=== PATIENT | female | born 1950 | race Caucasian/White ===

== ENCOUNTER 2018-08-24 09:38 | Outpatient (CLI) | payer MEDICARE ==
--- NOTE | 2018-09-03 13:11 | MMO ---
BILATERAL SCREENING MAMMOGRAM: Date: 08/24/18 COMPARISON: 06/16/17, 06/14/16, and 06/12/15. HISTORY: Screening mammography. FINDINGS: This patient's mammogram was interpreted with the assistance of computer-aided detection. Scattered fibroglandular densities are present. There is a new asymmetric density located within the central right breast in a retroareolar location measuring up to approximately 1.5 cm. IMPRESSION: BIRADS 0: Incomplete: Need Additional Imaging Evaluation and/or Prior Mammograms for Comparison Recommend diagnostic mammogram and focused breast ultrasound on the right. The facility will notify patient of need for additional imaging services. POS: [facility]
== END 2018-08-24 09:39 | disposition home or self-care (01) ==
LOC: SCSMAMMO 09:38
PROVIDERS: ATTEND Family Medicine
DX: Z12.31 Encounter for screening mammogram for malignant neoplasm of breast (principal)
CPT/HCPCS: 77067

== ENCOUNTER 2018-09-14 14:10 | Outpatient (CLI) | payer MEDICARE | END 2018-09-14 14:11 | disposition home or self-care (01) | LOC: BICMAMMO 14:10 | PROVIDERS: ATTEND Family Medicine | DX: R92.2 Inconclusive mammogram (principal); Z80.3 Family history of malignant neoplasm of breast | CPT/HCPCS: 77065; G0279 ==

== ENCOUNTER 2018-10-19 09:17 | Outpatient (CLI) | payer MEDICARE ==
--- NOTE | 2018-10-19 11:27 | BD ---
BONE DENSITOMETRY USING DEXA: HISTORY: Postmenopausal screening for osteoporosis. FINDINGS: Lumbar Spine: BMD (g/cm2) L1 0.702 T-Score: -2.6 Z-Score: 0.9 L2 0.762 T-Score: -2.4 Z-Score: 0.5 L3 0.836 T-Score: -2.3 Z-Score: 0.2 L4 0.829 T-Score: -2.1 Z-Score: 0.0 L1-L4 0.787 T-Score: -2.4 Z-Score: 0.4 Femoral Neck: 0.692 T-Score: -1.4 Z-Score: 0.3 Total Femur: 0.922 T-Score: -0.2 Z-Score: 1.2 The 10-year fracture risk for a major osteoporotic fracture is 8.6% and for a hip fracture is 0.9%. Impression: Osteopenia. POS: [facility]
== END 2018-10-19 09:18 | disposition home or self-care (01) ==
LOC: BICMAMMO 09:17
PROVIDERS: ATTEND Family Medicine
DX: M85.859 Other specified disorders of bone density and structure, unspecified thigh (principal); M81.0 Age-related osteoporosis without current pathological fracture
CPT/HCPCS: 77080

== ENCOUNTER 2019-09-16 09:52 | Outpatient (CLI) | payer MEDICARE ==
--- NOTE | 2019-09-16 11:39 | MMO ---
Bilateral MAMMO Bilat Screen [facility]. CLINICAL HISTORY: Patient is 68 years old and is seen for screening. The patient has no personal history of cancer. VIEWS: The views performed were: bilateral craniocaudal with tomosynthesis and bilateral mediolateral oblique with tomosynthesis. FILMS COMPARED: The present examination has been compared to prior imaging studies performed on 06/14/2016, 06/16/2017 and 08/24/2018, and at [facility] on 09/14/2018. This study has been interpreted with the assistance of computer-aided detection. MAMMOGRAM FINDINGS: There are scattered fibroglandular densities. There are stable benign appearing calcifications seen in both breasts. There are no suspicious masses, suspicious calcifications, or new areas of architectural distortion. IMPRESSION: THERE IS NO MAMMOGRAPHIC EVIDENCE OF MALIGNANCY. A ROUTINE FOLLOW-UP MAMMOGRAM IN 1 YEAR IS RECOMMENDED. THE RESULTS OF THIS EXAM WERE SENT TO THE PATIENT. ACR BI-RADS Category 2 - Benign finding MAMMOGRAPHY NOTE: 1. A negative mammogram report should not delay a biopsy if a dominant of clinically suspicious mass is present. 2. Approximately 10% to 15% of breast cancers are not detected by mammography. 3. Adenosis and dense breasts may obscure an underlying neoplasm. Reported by: MAXIMILIAN MORALES MD Electonically Signed: [id number]
== END 2019-09-16 09:53 | disposition home or self-care (01) ==
LOC: BICMAMMO 09:52
PROVIDERS: ATTEND Family Medicine
DX: Z12.31 Encounter for screening mammogram for malignant neoplasm of breast (principal)
CPT/HCPCS: 77063; 77067

== ENCOUNTER 2019-11-27 07:44 | Outpatient (CLI) | payer MEDICARE ==
[2019-11-27 12:36] LABS: #Eosinphils 0.1 thou/uL (0.0-0.7); #Monocytes 0.5 thou/uL (0.11-0.59); #Neutrophils 2.7 thou/uL (1.40-6.50); %Basophils 0.3 % (0.0-1.0); %Eosinophils 2.6 % (0.0-10.0); %Lymphocytes 37.8 % (21.0-51.0); %Monocytes 8.7 % (0.0-10.0); %Neutrophils 50.5 % (42.0-75.0); Hemoglobin 13.9 g/dL (12.0-16.0); Mean Corpuscular HGB CONC 32.5 g/dL (32.0-36.0); Mean Corpuscular Hemoglobin 30.5 pg (27.0-31.0); Mean Corpuscular Volume 93.9 fL (78.0-98.0); Mean Platelet Volume 7.3 fL (7.4-10.4); Platelet Count 261 thou/uL (130-400); Red Blood Cell (RBC) Count 4.57 mill/uL (4.20-5.40); White Blood Cell (WBC) Count 5.3 thou/uL (4.8-10.8)
[2019-11-27 12:52] LABS: Anion Gap 11 mmol/L (10-20); BUN (Urea Nitrogen) 11 mg/dL (9.8-20.1); Calc. Creatinine Clearance 0 mL/min (70-130); Calcium 9.5 mg/dL (7.8-10.44); Carbon Dioxide 30 mmol/L (23-31); Chloride 107 mmol/L (98-107); Estimated GFR-MDRD 70; Glucose 100 mg/dL (80-115); Potassium 4.1 mmol/L (3.5-5.1); Sodium 144 mmol/L (136-145)
--- NOTE | 2019-11-28 08:32 | EKG ---
Test Reason : Blood Pressure : / mmHG Vent. Rate : 087 BPM Atrial Rate : 087 BPM P-R Int : 142 ms QRS Dur : 072 ms QT Int : 400 ms P-R-T Axes : 054 026 020 degrees QTc Int : 481 ms Poor data quality, interpretation may be adversely affected Normal sinus rhythm Low voltage QRS Cannot rule out Anterior infarct , age undetermined Abnormal ECG No previous ECGs available Confirmed by DR. Lou RUANO ([id number]) on 11/28/2019 8:32:23 AM Referred By: JANAK Confirmed By:DR. Lou RUANO
== END 2019-11-27 07:45 | disposition home or self-care (01) ==
LOC: LABBT 07:44
PROVIDERS: ATTEND Surgery
DX: Z01.818 Encounter for other preprocedural examination (principal); D17.79 Benign lipomatous neoplasm of other sites
CPT/HCPCS: 80048; 85025; 93005; 93010

== ENCOUNTER 2019-11-29 05:55 | Day surgery (SDC) | payer MEDICARE ==
[2019-11-27 11:48] VITALS: BMI 28.8
[2019-11-29] MEDS ORDERED: Fentanyl 100 MCG/2 ML VIAL ONE (06:36)
[2019-11-29] MEDS ORDERED: Lidocaine 1% w/Epinephrine 1:100K 20 ML VIAL ONE (07:06)
[2019-11-29] MEDS ORDERED: Bupivacaine PF 0.5% 30 ML VIAL ONE (07:06)
[2019-11-29] MEDS ORDERED: Ondansetron PF 4 MG/2 ML Vial ONE (09:21)
[2019-11-29] MEDS ORDERED: PROPOFOL 200 MG/20 ML VIAL ONE (09:21)
[2019-11-29] MEDS ORDERED: Dexamethasone 20 MG/5 ML VIAL ONE (09:21)
[2019-11-29] MEDS ORDERED: Lidocaine 1% PF 5 ML VIAL ONE (09:21)
--- NOTE | 2019-11-29 12:15 | OP ---
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 PROCEDURE PERFORMED: Excisional biopsy. INDICATIONS: A 69-year-old female, who had, had a large lipoma excised 10 years ago from that leg with a recurrent bulge. FINDINGS: A 15 x 15 x 8 cm multilobular intramuscular recurrent lipoma of the left upper inner thigh. DESCRIPTION OF PROCEDURE: After informed consent was obtained, the patient was taken to the operating room, given general endotracheal anesthesia. She was placed in lithotomy position. Her skin was prepped and draped in usual fashion. Local anesthesia infiltrated subcutaneously and deep. An elliptical incision was performed, subcu divided sharply. The capsule was incised and using digital dissection, I was able to free it up circumferentially, but there were several accessory lobules that went into their own pockets. These were also dissected out. Then another large probably 6 x 6 x 5 cm lipoma was found more posterior to this that was also removed by opening up the muscle fibers and excising sharply. Hemostasis was achieved with electrocautery. A drain was placed and brought out anteriorly. The fascia was closed with interrupted 2-0 Vicryl sutures. Skin closed with a running subcuticular 4-0 Rapide. Steri-Strips applied. Sterile bandage applied. The patient tolerated the procedure well, transferred to Recovery in good condition. Sponge and needle count verified correct x2. Job ID: [id number]
== END 2019-11-29 11:02 | disposition home or self-care (01) ==
LOC: SDC 05:55
PROVIDERS: ATTEND Surgery
PROC: 0KBR0ZZ Excision of Left Upper Leg Muscle, Open Approach (ICD-10-PCS; principal; 2019-11-29)
DX: D17.24 Benign lipomatous neoplasm of skin and subcutaneous tissue of left leg (principal); E89.0 Postprocedural hypothyroidism; E78.5 Hyperlipidemia, unspecified; M85.80 Other specified disorders of bone density and structure, unspecified site; L40.9 Psoriasis, unspecified; Z79.83 Long term (current) use of bisphosphonates; Z79.899 Other long term (current) drug therapy; Z85.828 Personal history of other malignant neoplasm of skin; Z85.850 Personal history of malignant neoplasm of thyroid; Z87.891 Personal history of nicotine dependence
CPT/HCPCS: 88304; J0690; J1100; J2001; J2405; J2704; J3010; S0020